=== PATIENT | male | born 2000 | race Caucasian/White ===

== ENCOUNTER 2023-08-08 11:41 | Emergency (ER) | payer OTHER ==
[2023-08-08] MEDS ORDERED: Ibuprofen 200 MG TAB ONE (12:46)
== END 2023-08-08 12:50 | disposition home or self-care (01) ==
LOC: NAV ERS 11:41
DX: T63.2X1A Toxic effect of venom of scorpion, accidental (unintentional), initial encounter (principal); N48.89 Other specified disorders of penis; Y93.E1 Activity, personal bathing and showering
CPT/HCPCS: 99282